=== PATIENT | female | born 1975 | race Caucasian/White ===

== ENCOUNTER → 2018-08-10 | Outpatient (CLI) | payer OTHER | END | disposition home or self-care (01) | LOC: CARD 08:58 → MERGE 08:58 | PROVIDERS: ATTEND Nurse Practitioner Family | DX: G56.03 Carpal tunnel syndrome, bilateral upper limbs (principal); G36.9 Acute disseminated demyelination, unspecified; Z90.13 Acquired absence of bilateral breasts and nipples; Z90.710 Acquired absence of both cervix and uterus | CPT/HCPCS: 95886; 95908 ==